=== PATIENT | female | born 1930 | race Caucasian/White ===

== ENCOUNTER 2016-09-28 15:21 | Emergency (ER) | payer OTHER ==
[~2016-09-28] VITALS: Ht 154.9 cm; Wt 56.4 kg
[2016-09-28 15:29] VITALS: Ht 154.9 cm; Wt 56.4 kg
[2016-09-28] MEDS ORDERED: ACETAMINOPHEN 500 MG TAB PO STA (15:39)
[2016-09-28] MEDS ORDERED: LIDOCAINE 1% (MDV) 20 ML INJ SC ONE (16:00)
[2016-09-28] MEDS ORDERED: ACET500C5 PO (16:12)
--- NOTE | 2016-09-28 16:17 | ERD ---
ER Documentation Chief Complaint Date/Time DATE: 09/28/16 TIME: 16:15 Chief Complaint RIGHT BIG TOE POSSIBLE INFECTION X 2 WEEKS HPI This 86-year-old female presents with right big toe redness near the nail. Been for 2 weeks. There is no history of trauma, fevers, pus or bleeding. ROS All systems reviewed and are negative except as per history of present illness. Medications Home Meds Active Scripts Acetaminophen* (Tylophen*) 500 Mg Capsule, 1 CAP PO Q6H Y for PAIN AND OR ELEVATED TEMP, #14 CAP Prov:ОЛЬГА DIAZ MD 09/28/16 Allergies Allergies: Coded Allergies: No Known Allergy (Unverified , 09/28/16) PMhx/Soc Medical and Surgical Hx: pt denies Surgical Hx Hx Cardiac Disorders: Yes (htn) Hx Psychiatric Problems: No Hx Miscellaneous Medical Probl: No Hx Alcohol Use: No Hx Substance Use: No Hx Tobacco Use: No Smoking Status: Never smoker Physical Exam Vitals Vital Signs Date Time Temp Pulse Resp B/P Pulse Ox O2 Delivery O2 Flow Rate FiO2 09/28/16 15:29 98.2 73 18 186/77 100 Physical Exam Alert, not ill-appearing. Const: [] Head: Atraumatic Eyes: Normal Conjunctiva ENT: Normal External Ears, Nose and Mouth. Neck: Full range of motion..~ No meningismus. Resp: Clear to auscultation bilaterally Cardio: Regular rate and rhythm, no murmurs Abd: Soft, non tender, non distended. Normal bowel sounds Skin: No petechiae or rashes Back: No midline or flank tenderness Ext: No cyanosis, or edema. Right big toe shows an ingrown nail on the lateral portion. There is a overlapping piece of skin which may be a pyogenic granuloma. Neur: Awake and alert Psych: Normal Mood and Affect Results 24 hrs Current Medications Medications (Trade) Dose Ordered Sig/Rehan Route PRN Reason Start Time Stop Time Status Last Admin Dose Admin Acetaminophen (Tylenol Tab) 500 mg ONCE STAT PO 09/28/16 15:39 09/28/16 15:40 DC 09/28/16 15:50 Lidocaine (Xylocaine 1% (Mdv) 20 ml) 20 ml ONCE ONCE SC 09/28/16 16:00 09/28/16 16:01 DC Procedures/MDM Patient presents with a ingrown toenail with pannus formation or pyogenic granuloma. Patient was given Tylenol by mouth. Procedure note-right big toe was prepped with Betadine. 3 cc of lidocaine was used to perform a digital block. Anesthesia was obtained. Clamps and scissors are used to avulse the ingrown portion of nail. The pannus formation was excised with scissors and wound bed was cauterized using electrocautery. Patient tolerated the procedure well and the wound was dressed. Patient was discharged home with wound care instructions return for fevers, redness, new worsening symptoms. There is no evidence of osteomyelitis, fracture, dislocation, significant cellulitis. Patient should return for fevers, redness , new worsening symptoms. Departure Diagnosis: Primary Impression: Ingrown nail Condition: Stable Patient Instructions: Ingrown Toenail, Excised Additional Instructions: Cheque otro vez con granda doctor primario en el proximo simon or regresa para mas o nueva simptomas, MAS EDMONDSON , FIEBRE, PUS. ОЛЬГА DIAZ MD Sep 28, 2016 16:17
== END 2016-09-28 16:40 | disposition home or self-care (01) ==
LOC: FTE 15:21
DX: L60.0 Ingrowing nail (principal); I10 Essential (primary) hypertension